=== PATIENT | female | born 1990 | race Caucasian/White ===

== ENCOUNTER 2021-01-01 11:44 | Emergency (ER) | payer SELFPAY ==
--- NOTE | 2021-01-01 11:51 | EDM.PDOC ---
ED HPI GENERAL MEDICAL PROBLEM - General Chief Complaint: Gastrointestinal Problem Stated Complaint: NAUSEA Time Seen by Provider: 01/01/21 11:45 Source of Information: Reports: Patient History Limitations: Reports: No Limitations - History of Present Illness INITIAL COMMENTS - FREE TEXT/NARRATIVE: HISTORY AND PHYSICAL: History of present illness: Patient is a 30-year-old female, with a history of PCOS, who presents emergency room today with concern of possible COVID-19 viral infection. Patient states that on December 21, she had a headache that day. Patient states starting December 23, she started having a sore throat and cough. Patient states that since then, she has had progressive nausea and vomiting and states that now her most bothersome symptom is the vomiting. Patient states that she has not been able to eat or drink without vomiting and states that she believes she is dehydrated. Patient states that she has not tested for COVID-19 since the onset of her symptoms but has been treating and isolating as of this as been what she has had. Patient states that she comes to the emergency room today as she feels that she cannot keep anything down and feels dehydrated and weak. Patient denies any other health history or any other resuscitative symptoms. Patient denies fever, chills, chest pain, shortness of breath. Denies headache, neck stiff ness, change in vision, syncope, or near syncope. Denies abdominal pain, diarrhea, constipation, or dysuria. Has not noted any blood in urine or stool. Review of systems: As per history of present illness and below otherwise all systems reviewed and negative. Past medical history: As per history of present illness and as reviewed below otherwise noncontributory. Surgical history: As per history of present illness and as reviewed below otherwise noncontributory. Social history: See social history for further information Family history: As per history of present illness and as reviewed below otherwise noncontributory. Physical exam: General: Patient is alert, oriented, and in no acute distress. Patient sitting comfortably on exam table, tired appearing. Vitals stable and reviewed by me. HEENT: Atraumatic, normocephalic, pupils equal and reactive bilaterally, negative for conjunctival pallor or scleral icterus, mucous membranes moist, , throat clear, neck supple, nontender, trachea midline. No drooling or trismus noted. No meningeal signs. No hot potato voice noted. Lungs: Clear to auscultation, breath sounds equal bilaterally, chest nontender. Heart: S1S2, regular rate and rhythm without overt murmur Abdomen: Soft, nondistended, nontender. Negative for masses or hepatosplenomegaly. Negative for costovertebral tenderness. Pelvis: Stable nontender. Genitourinary: Deferred. Rectal: Deferred. Skin: Intact, warm, dry. No lesions or rashes noted. Extremities: Atraumatic, negative for cords or calf pain. Neurovascular unremarkable. Neuro: Awake, alert, oriented. Cranial nerves II through XII unremarkable. Cerebellum unremarkable. Motor and sensory unremarkable throughout. Exam nonfocal. Notes: Patient is a 30-year-old female presents emergency room today with concern of possible COVID-19 viral infection as she has been having cough, weakness, headache, nausea and vomiting over the past 7 to 10 days. Prior to the ED, patient is vitally stable and tired appearing on exam but otherwise exam is unremarkable. Will swab for COVID-19, provide normal saline and Zofran, obtain basic lab work, and reassess patient. See Dr. Lozano dictation for specific EKG interpretation. However, normal sinus tachycardia with a rate of 105 without STEMI. Mild derangements of lab work today unremarkable. hCG negative. COVID-19 positive. Upon reevaluation of patient, she is able to tolerate p.o. intake in the ED and has improvement of her symptoms with therapeutics today in the emergency room. Strict return precautions thoroughly discussed with patient. Discussed importan ce for follow-up with a primary care provider following COVID-19 quarantine restrictions. Voices understanding and is agreeable to plan of care. Denies any further questions or concerns at this time. Diagnostics: CBC, CMP, UA, Serum hcg, Lipase, COVID, EKG Therapeutics: Zofran, NS, Protonix Prescription: Zofran Impression: COVID-19 viral infection Plan: 1. Your COVID-19 screening is positive. That means you do have the coronavirus and are considered contagious. Your vital signs and oxygen saturation are well enough that you were able to monitor your symptoms at home. Continue to monitor for trouble breathing, new confusion or inability to arouse, bluish lips or face or any of the other symptoms we discussed -if this occurs please return to the emergency room.Continue to monitor your health at home for worsening symptoms so that you can be taken care of and treated quickly if needed. 2. Please self quarantine until 10 days have passed since your symptoms began AND you are fever free (<100.4 degrees fahrenheit) for 24 hours without the use of fever-reducing medications AND symptoms are improving. You should restrict activities outside of your home, except for getting medical care. Do not go to work, school, or public areas. Avoid using public transportation, ride-sharing, or taxis. Inform any persons that you have been in contact with since you started becoming symptomatic that you have tested positive; they should be made aware and take the appropriate steps as needed. 3. Take the medications as we prescribed as discussed. 4. You may alternate Tylenol and ibuprofen as needed for pain and fever management. 5. The [facility] department will be calling you and following up with you. The [place] COVID 19 Hotline phone number , They are open Sunday - Sunday 7am - 7pm. Follow up with your primary care provider for re-evaluation and re-testing after quarantine and discuss when you should be seen. 6. For more specific guidelines regarding isolation/quarantine please visit this website. https://www.health.[place].gov/sites/www/files/documents/Files/SILVER/coronavirus/Factsh eet_for_People_With_COVID-19.pdf Definitive disposition and diagnosis as appropriate pending reevaluation and review of above. - Related Data Allergies Allergy/AdvReac Type Severity Reaction Status Date / Time No Known Allergies Allergy Verified 01/01/21 12:10 Home Meds: Home Meds Ondansetron [Zofran ODT] 4 mg PO Q6H PRN #8 tab.dis 01/01/21 [Rx] ED ROS GENERAL - Review of Systems Review Of Systems: Comprehensive ROS is negative, except as noted in HPI. ED EXAM, GENERAL - Physical Exam Exam: See Below (see dictation) Course - Vital Signs Last Recorded V/S: Last Vital Signs Temp 97.4 F 01/01/21 13:58 Pulse 92 01/01/21 13:58 Resp 18 01/01/21 13:58 BP 117/68 01/01/21 13:58 Pulse Ox 97 01/01/21 13:58 - Orders/Labs/Meds Orders: Active Orders 24 hr Category Date Time Status UA RFX YUSUF AND CULT IF INDIC [URIN] Stat Lab 01/01/21 12:21 Ordered Labs: Laboratory Tests 01/01/21 01/01/21 01/01/21 Range/Units 12:09 12:55 12:55 WBC 5.02 (4.0-11.0) K/uL RBC 4.94 (4.30-5.90) M/uL Hgb 14.8 (12.0-16.0) g/dL Hct 42.5 (36.0-46.0) % MCV 86.0 (80.0-98.0) fL MCH 30.0 (27.0-32.0) pg MCHC 34.8 (31.0-37.0) g/dL RDW Std Deviation 38.2 (28.0-62.0) fl RDW Coeff of Santy 12 (11.0-15.0) % Plt Count 247 (150-400) K/uL MPV 8.70 (7.40-12.00) fL Neut % (Auto) 50.8 (48.0-80.0) % Lymph % (Auto) 37.6 (16.0-40.0) % Stearns % (Auto) 9.8 (0.0-15.0) % Eos % (Auto) 1.4 (0.0-7.0) % Baso % (Auto) 0.4 (0.0-1.5) % Neut # (Auto) 2.6 (1.4-5.7) K/uL Lymph # (Auto) 1.9 (0.6-2.4) K/uL Stearns # (Auto) 0.5 (0.0-0.8) K/uL Eos # (Auto) 0.1 (0.0-0.7) K/uL Baso # (Auto) 0.0 (0.0-0.1) K/uL Nucleated RBC % 0.0 /100WBC Nucleated RBCs # 0 K/uL Sodium 142 (136-145) mmol/L Potassium 3.6 (3.5-5.1) mmol/L Chloride 104 (98-107) mmol/L Carbon Dioxide 31.3 (21.0-32.0) mmol/L BUN 8 (7.0-18.0) mg/dL Creatinine 0.8 (0.6-1.0) mg/dL Est Cr Clr Drug Dosing 85.83 mL/min Estimated GFR (MDRD) > 60.0 ml/min Glucose 93 (74-106) mg/dL Calcium 8.1 L (8.5-10.1) mg/dL Total Bilirubin 0.3 (0.2-1.0) mg/dL AST 22 (15-37) IU/L ALT 27 (14-63) IU/L Alkaline Phosphatase 65 (46-116) U/L Total Protein 7.3 (6.4-8.2) g/dL Albumin 3.4 (3.4-5.0) g/dL Globulin 3.9 (2.6-4.0) g/dL Albumin/Globulin Ratio 0.9 (0.9-1.6) Lipase 81 (73-393) U/L HCG, Qual (NEG) Influenza Type A RNA NEGATIVE (NEGATIVE) Influenza Type B RNA NEGATIVE (NEGATIVE) SARS-CoV-2 RNA (JACINTO) POSITIVE H (NEGATIVE) 01/01/21 Range/Units 12:55 WBC (4.0-11.0) K/uL RBC (4.30-5.90) M/uL Hgb (12.0-16.0) g/dL Hct (36.0-46.0) % MCV (80.0-98.0) fL MCH (27.0-32.0) pg MCHC (31.0-37.0) g/dL RDW Std Deviation (28.0-62.0) fl RDW Coeff of Santy (11.0-15.0) % Plt Count (150-400) K/uL MPV (7.40-12.00) fL Neut % (Auto) (48.0-80.0) % Lymph % (Auto) (16.0-40.0) % Stearns % (Auto) (0.0-15.0) % Eos % (Auto) (0.0-7.0) % Baso % (Auto) (0.0-1.5) % Neut # (Auto) (1.4-5.7) K/uL Lymph # (Auto) (0.6-2.4) K/uL Stearns # (Auto) (0.0-0.8) K/uL Eos # (Auto) (0.0-0.7) K/uL Baso # (Auto) (0.0-0.1) K/uL Nucleated RBC % /100WBC Nucleated RBCs # K/uL Sodium (136-145) mmol/L Potassium (3.5-5.1) mmol/L Chloride (98-107) mmol/L Carbon Dioxide (21.0-32.0) mmol/L BUN (7.0-18.0) mg/dL Creatinine (0.6-1.0) mg/dL Est Cr Clr Drug Dosing mL/min Estimated GFR (MDRD) ml/min Glucose (74-106) mg/dL Calcium (8.5-10.1) mg/dL Total Bilirubin (0.2-1.0) mg/dL AST (15-37) IU/L ALT (14-63) IU/L Alkaline Phosphatase (46-116) U/L Total Protein (6.4-8.2) g/dL Albumin (3.4-5.0) g/dL Globulin (2.6-4.0) g/dL Albumin/Globulin Ratio (0.9-1.6) Lipase (73-393) U/L HCG, Qual NEGATIVE (NEG) Influenza Type A RNA (NEGATIVE) Influenza Type B RNA (NEGATIVE) SARS-CoV-2 RNA (JACINTO) (NEGATIVE) Meds: Medications Discontinued Medications Generic Name Dose Route Start Last Admin Trade Name Freq PRN Reason Stop Dose Admin Sodium Chloride 1,000 mls @ 999 mls/hr 01/01/21 12:21 01/01/21 12:48 Normal Saline IV 01/01/21 13:21 999 mls/hr BOLUS ONE Administration Pantoprazole Sodium 80 mg/ 20 mls @ 420 mls/hr 01/01/21 12:23 01/01/21 12:48 Sodium Chloride IVPUSH 01/01/21 12:25 420 mls/hr ONETIME ONE Administration Ondansetron HCl 4 mg 01/01/21 12:21 01/01/21 12:49 Ondansetron 4 Mg/2 Ml Sdv IVPUSH 01/01/21 12:22 4 mg ONETIME ONE Administration Departure - Departure Time of Disposition: 14:00 Disposition: Home, Self-Care 01 Clinical Impression: COVID-19 virus infection - Discharge Information Prescriptions: Ondansetron [Zofran ODT] 4 mg PO Q6H PRN #8 tab.dis PRN Reason: Nausea/Vomiting Referrals: PCP,None [Primary Care Provider] - Forms: ED Department Discharge Additional Instructions: The following information is given to patients seen in the emergency department who are being discharged to home. This information is to outline your options for follow-up care. We provide all patients seen in our emergency department with a follow-up referral. The need for follow-up, as well as the timing and circumstances, are variable depending upon the specifics of your emergency department visit. If you don't have a primary care physician on staff, we will provide you with a referral. We always advise you to contact your personal physician following an emergency department visit to inform them of the circumstance of the visit and for follow-up with them and/or the need for any referrals to a consulting specialist. The emergency department will also refer you to a specialist when appropriate. This referral assures that you have the opportunity for follow-up care with a specialist. All of these measure are taken in an effort to provide you with optimal care, which includes your follow-up. Under all circumstances we always encourage you to contact your private physician who remains a resource for coordinating your care. When calling for follow-up care, please make the office aware that this follow-up is from your recent emergency room visit. If for any reason you are refused follow-up, please contact the [facility] Emergency Department at and asked to speak to the emergency department charge nurse. [facility] [address] [place] [id number] [id number] 1. Your COVID-19 screening is positive. That means you do have the coronavirus and are considered contagious. Your vital signs and oxygen saturation are well enough that you were able to monitor your symptoms at home. Continue to monitor for trouble breathing, new confusion or inability to arouse, bluish lips or face or any of the other symptoms we discussed -if this occurs please return to the emergency room.Continue to monitor your health at home for worsening symptoms so that you can be taken care of and treated quickly if needed. 2. Please self quarantine until 10 days have passed since your symptoms began AND you are fever free (<100.4 degrees fahrenheit) for 24 hours without the use of fever-reducing medications AND symptoms are improving. You should restrict activities outside of your home, except for getting medical care. Do not go to work, school, or public areas. Avoid using public transportation, ride-sharing, or taxis. Inform any persons that you have been in contact with since you started becoming symptomatic that you have tested positive; they should be made aware and take the appropriate steps as needed. 3. Take the medications as we prescribed as discussed. 4. You may alternate Tylenol and ibuprofen as needed for pain and fever management. 5. The [facility] department will be calling you and following up with you. The [place] COVID 19 Hotline phone number , They are open Sunday - Sunday 7am - 7pm. Follow up with your primary care provider for re-evaluation and re-testing after quarantine and discuss when you should be seen. 6. For more specific guidelines regarding isolation/quarantine please visit this website. https://www.health.[place].gov/sites/www/files/documents/Files/SILVER/coronavirus/Factsh eet_for_People_With_COVID-19.pdf Sepsis Event Note (ED) - Focused Exam Vital Signs: Vital Signs Temp Pulse Resp BP Pulse Ox 01/01/21 13:58 97.4 F 92 18 117/68 97 01/01/21 12:11 97.9 F 99 18 123/80 96 - My Orders Last 24 Hours: My Active Orders 01/01/21 12:21 UA RFX YUSUF AND CULT IF INDIC [URIN] Stat - Assessment/Plan Last 24 Hours: My Active Orders 01/01/21 12:21 UA RFX YUSUF AND CULT IF INDIC [URIN] Stat
[2021-01-01] MEDS ORDERED: Ondansetron 4 MG/2 ML SDV IVPUSH ONE (12:21)
[2021-01-01] MEDS ORDERED: Sodium Chloride 0.9% 1,000 ML IV ONE (12:21)
[2021-01-01] MEDS ORDERED: Pantoprazole 80 MG in Sodium Chloride 0.9% 20 ML IVPUSH ONE (12:23)
--- NOTE | 2021-01-01 12:44 | PCM.EKG ---
#1 Interpretation EKG Date: 01/01/21 Time: 12:35 Rhythm: NSR Rate (Beats/Min): 105 [place]: Normal P-Wave: Present QRS: Normal ST-T: Normal QT: Normal SD/PQ Interval: 151 Comparison: NA - No Prior EKG EKG Interpretation Comments: normal EKG, sinus tach
[2021-01-01 12:51] LABS: CORONAVIRUS COVID-19 NAA POSITIVE (NEGATIVE); INFLUENZA A NAA NEGATIVE (NEGATIVE); INFLUENZA B NAA NEGATIVE (NEGATIVE)
[2021-01-01 13:24] LABS: BLOOD UREA NITROGEN,BUN 8 mg/dL (7.0-18.0); CARBON DIOXIDE,CO2 31.3 mmol/L (21.0-32.0); CHLORIDE,CL 104 mmol/L (98-107); GLUCOSE RANDOM 93 mg/dL (74-106); LIPASE 81 U/L (73-393); POTASSIUM,K 3.6 mmol/L (3.5-5.1); SODIUM,NA 142 mmol/L (136-145)
== END 2021-01-01 14:06 | disposition home or self-care (01) ==
LOC: MW.ED 11:44
DX: U07.1 COVID-19 (principal)
CPT/HCPCS: 0240U; 80053; 83690; 84703; 85025; 93005; 96374; 96375; 99284; C9113; J2405; J7030; 93010; 99283